=== PATIENT | male | born 1970 | race Caucasian/White ===

== ENCOUNTER 2016-12-17 13:03 | Emergency (ER) | payer OTHER ==
[2016-12-17 13:09] VITALS: BP 145/89
[2016-12-17] MEDS ORDERED: LIDOCAINE 4%/TETRACAINE 0.5%/EPI 0.18% 5 ML TOPICAL SOLN TOP ONE (13:23)
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
[2016-12-17] MEDS ORDERED: CEPHALEXIN 500 MG CAPSULE PO ONE (13:28)
== END 2016-12-17 13:58 | disposition home or self-care (01) ==
LOC: ER 13:03
DX: S01.511A Laceration without foreign body of lip, initial encounter (principal); W34.010A Accidental discharge of airgun, initial encounter; Y93.89 Activity, other specified; Y92.89 Other specified places as the place of occurrence of the external cause; I10 Essential (primary) hypertension; Z88.8 Allergy status to other drugs, medicaments and biological substances
CPT/HCPCS: 99282; 12011; J3490

== ENCOUNTER → 2017-01-02 | Outpatient (CLI) | payer OTHER | LOC: RAD 07:31 | PROVIDERS: ATTEND Physician Assistant | DX: R94.5 Abnormal results of liver function studies (principal); K76.0 Fatty (change of) liver, not elsewhere classified | CPT/HCPCS: 76705 ==

== ENCOUNTER → 2017-10-12 | Outpatient (CLI) | payer OTHER ==
--- NOTE | 2017-10-12 15:10 | RADIOLOGY REPORT (SQ) ---
EXAM DESCRIPTION: CHEST PA/LATERAL COMPLETED DATE/TIME: 10/12/2017 2:00 pm REASON FOR STUDY: COUGH COMPARISON: 12/05/2011 EXAM PARAMETERS: NUMBER OF VIEWS: two views TECHNIQUE: Digital Frontal and Lateral radiographic views of the chest acquired. RADIATION DOSE: NA LIMITATIONS: none FINDINGS: LUNGS AND PLEURA: No opacities, masses or pneumothorax. No pleural effusion. MEDIASTINUM AND HILAR STRUCTURES: No masses or contour abnormalities. HEART AND VASCULAR STRUCTURES: Heart normal size. No evidence for failure. BONES: No acute findings. HARDWARE: None in the chest. OTHER: No other significant finding. IMPRESSION: NO SIGNIFICANT RADIOGRAPHIC FINDING IN THE CHEST. TECHNICAL DOCUMENTATION: JOB ID: [id number] [employer]- All Rights Reserved
== END ==
LOC: OD 13:45
PROVIDERS: ATTEND Physician Assistant
DX: R05 Cough (principal)
CPT/HCPCS: 71046

== ENCOUNTER 2017-10-13 15:19 | Emergency (ER) | payer OTHER ==
[2017-10-13] MEDS ORDERED: LIDOCAINE 1% INJ-PF (10 MG/ML) 30 ML SDV INJ ONE (15:47)
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
[2017-10-13] MEDS ORDERED: CEPHALEXIN 500 MG CAPSULE PO ONE (17:15)
[2017-10-13 17:38] VITALS: BP 145/78
== END 2017-10-13 17:38 | disposition home or self-care (01) ==
LOC: ER 15:19
PROC: 0HQNXZZ Repair Left Foot Skin, External Approach (ICD-10-PCS; principal; 2017-10-13)
DX: S91.312A Laceration without foreign body, left foot, initial encounter (principal); W45.8XXA Other foreign body or object entering through skin, initial encounter
CPT/HCPCS: 99283; 12002; J3490